=== PATIENT | female | born 1965 | race Caucasian/White ===

== ENCOUNTER 2019-06-30 16:29 | Emergency (ER) | payer SELFPAY ==
[~2019-06-30] VITALS: Ht 172.7 cm; Wt 72.6 kg
[2019-06-30] MEDS ORDERED: Amoxicillin875 MG PO (16:52)
== END 2019-06-30 17:00 | disposition home or self-care (01) ==
LOC: ER 16:29
DX: K04.7 Periapical abscess without sinus (principal)
CPT/HCPCS: 99282